=== PATIENT | female | born 1955 | race Caucasian/White ===

== ENCOUNTER 2020-09-10 18:12 | Emergency (ER) | payer OTHER ==
[~2020-09-10] VITALS: Ht 157.5 cm; Wt 58.5 kg
[2020-09-10 18:13] VITALS: Ht 157.5 cm; Wt 58.5 kg
[2020-09-10 19:01] VITALS: BP 163/89
== END 2020-09-10 19:01 | disposition other institution (70) ==
LOC: ED 18:12
DX: Z02.89 Encounter for other administrative examinations (principal)